=== PATIENT | female | born 1955 | race Caucasian/White ===

== ENCOUNTER 2019-04-19 16:38 | Emergency (ER) | payer MEDICARE, MEDICAID ==
[~2019-04-19] VITALS: Ht 170.2 cm; Wt 78.8 kg
[2019-04-19 17:21] LABS: BASOPHILS # (AUTO) 0.1 X10'3 (0-0.2); BASOPHILS % (AUTO) 1.1 % (0-1); EOSINOPHILS # (AUTO) 0.1 X10'3 (0-0.9); EOSINOPHILS % (AUTO) 1.5 % (0-6); HEMOGLOBIN 13.8 g/dl (12.0-16.0); LYMPHOCYTES # (AUTO) 2.1 X10'3 (1.1-4.8); LYMPHOCYTES % (AUTO) 29.5 % (21-51); MEAN CORPUSCULAR HEMOGLOBIN 31.1 PG (27.0-31.0); MEAN CORPUSCULAR HGB CONC 33.7 g/dL (33.0-36.5); MEAN CORPUSCULAR VOLUME 92.5 FL (78-98); MEAN PLATELET VOLUME 7.3 FL (7.4-10.4); MONOCYTES # (AUTO) 0.4 X10'3 (0-0.9); MONOCYTES % (AUTO) 5.5 % (2-12); NEUTROPHILS # (AUTO) 4.5 X10'3 (1.8-7.7); NEUTROPHILS % (AUTO) 62.4 % (42-75); PLATELET COUNT 334 X10'3 (140-440); RED BLOOD COUNT 4.44 X10'6 (4.20-5.60); RED CELL DISTRIBUTION WIDTH 12.6 % (11.5-14.5); WHITE BLOOD COUNT 7.2 X10'3 (4.5-11.0)
[2019-04-19 17:24] LABS: ALANINE AMINOTRANSFERASE 21 U/L (12-78); ALBUMIN 3.8 G/DL (3.4-5.0); ALBUMIN/GLOBULIN RATIO 1.2 (1.1-1.5); ALKALINE PHOSPHATASE 101 IU/L (46-116); ANION GAP 7 (8-16); ASPARTATE AMINO TRANSFERASE 20 U/L (10-37); BILIRUBIN,TOTAL 0.3 MG/DL (0.1-1.0); BLOOD UREA NITROGEN 14 MG/DL (7-18); BUN/CREATININE RATIO 17.7 (6.6-38.0); CALCIUM 9.6 MG/DL (8.5-10.1); CHLORIDE 98 MMOL/L (99-107); CREATININE 0.79 MG/DL (0.40-0.90); GLUCOSE 100 MG/DL (70-104); POTASSIUM 3.9 MMOL/L (3.5-5.1); SODIUM 135 MMOL/L (135-145); TOTAL PROTEIN 7.1 G/DL (6.4-8.2); eGFR 73 ML/MIN
[2019-04-19 19:52] VITALS: BP 133/91
== END 2019-04-19 19:53 | disposition home or self-care (01) ==
LOC: ER 16:40
DX: S00.83XA Contusion of other part of head, initial encounter (principal); S00.81XA Abrasion of other part of head, initial encounter; I10 Essential (primary) hypertension; F32.9 Major depressive disorder, single episode, unspecified; M54.2 Cervicalgia; R42 Dizziness and giddiness; W01.198A Fall on same level from slipping, tripping and stumbling with subsequent striking against other object, initial encounter; Y93.89 Activity, other specified; Y92.89 Other specified places as the place of occurrence of the external cause; Y99.8 Other external cause status
CPT/HCPCS: 36415; 70450; 70486; 72125; 80053; 85025; 93005; 99284

== ENCOUNTER 2025-03-28 05:33 | Observation (INO) | payer MEDICARE, MEDICAID ==
[2025-03-20 10:40] LABS: MEAN PLATELET VOLUME 6.9 FL (7.4-10.4); PRE OP HEMATOCRIT 35.4 % (35.0-45.0); PRE OP HEMOGLOBIN 11.4 g/dL (12.0-16.0); PRE OP PLATELET COUNT 475 X10'3 (140-440); PRE OP WHITE BLOOD COUNT 7.3 10'3 (4.8-10.8); RED CELL DISTRIBUTION WIDTH 20.1 % (11.5-14.5)
[2025-03-20 10:55] LABS: CREATININE 0.66 MG/DL (0.40-0.90); PRE OP ALT 14 U/L (30-65); PRE OP ANION GAP 4 (8-16); PRE OP AST 16 U/L (10-37); PRE OP BILIRUB, TOTAL 0.5 MG/DL (0.0-1.0); PRE OP GLUCOSE 95 MG/DL (70-104); PRE OP POTASSIUM 4.0 MMOL/L (3.4-5.1); PRE OP SODIUM 136 MMOL/L (135-145); TOTAL CARBON DIOXIDE 33.1 MMOL/L (24-32); eGFR 88 ML/MIN
[2025-03-20 10:59] LABS: PLATELET ESTIMATE INCREASED
[~2025-03-28] VITALS: Ht 162.6 cm; Wt 76.2 kg
[2025-03-28] VITALS (19 sets, daily range): BP systolic 109–156; BP diastolic 63–109; PULSE 88–102; RESP 11–16; TEMP 97.3–98.9; O2SAT 93–100
[2025-03-28] MEDS: ceFAZolin 2gm/dext,iso 50mL 50 ML IV ONE (05:30)
[~2025-03-28 05:33] MED LIST: ATOR20TA PO; DESV100T3 PO; HYDR25TA5 PO; LAMO150T6 PO; LOSA50TA64 PO; [UNRECOGNIZED DRUG - CODE] SQ
[2025-03-28] MEDS: ringers solution, lacted 1,000 ML IV SCH ×2 (06:03→08:10)
[2025-03-28] MEDS: vancomycin/NS 1 GM ADD-VANTAGE 250 ML IV ONE (06:04)
[2025-03-28] MEDS ORDERED: fentaNYL/PF 50MCG/1 ML 2ML syringe ONE ×2 (07:10→08:22)
[2025-03-28] MEDS ORDERED: ROPIVAcaine 0.5% (5mg/ml) 30ml vial ONE (07:10)
[2025-03-28] MEDS ORDERED: acetaminophen 1,000mg/100ml IV 100 ML IV ONE (07:10)
[2025-03-28] MEDS ORDERED: midazolam 1 mg/ML 2ml injection ONE (07:10)
[2025-03-28] MEDS ORDERED: dexamethasone sod phosphate 4mg/ml inj. ONE (07:11)
[2025-03-28] MEDS ORDERED: propofol inj 20 ML IV ONE (07:11)
[2025-03-28] MEDS ORDERED: LIDOcaine 1%/PF 5ML 10 MG/ML VIAL ONE (07:11)
[2025-03-28] MEDS ORDERED: ondansetron/PF 4mg/2ml inj IV PRN (07:15)
[2025-03-28] MEDS ORDERED: bisacodyl 10mg suppository rectal RC PRN (07:15)
[2025-03-28] MEDS ORDERED: magnesium hydroxide 30ml (MOM) UD suspension PO PRN (07:15)
[2025-03-28] MEDS ORDERED: PCA WASTE DOCUMENTATION 1 MG ML MC SCH (07:15)
[2025-03-28] MEDS: TIRZEPATIDE 7.5 MG SQ SCH (07:25)
[2025-03-28] MEDS: DESVENLAFAXINE SUCCINATE PO SCH (08:00)
[2025-03-28] MEDS ORDERED: hydrALAZINE 20mg/ml inj. IV PRN (08:10)
[2025-03-28] MEDS ORDERED: morphine 4 MG/ML inj SYRINge IV PRN (08:10)
[2025-03-28] MEDS ORDERED: labetalol 20mg/4ml (5mg/ml) syringe IV PRN (08:10)
[2025-03-28] MEDS ORDERED: ROPIVAcaine 0.2% (10 MG/5 ML) BOLUS INJECTION INTERSCALE PRN (08:10)
[2025-03-28] MEDS ORDERED: fentaNYL/PF 50MCG/1 ML 2ML syringe IV PRN ×2 (08:10)
--- NOTE | 2025-03-28 08:16 | ANESTHESIA RECORDS ---
Nerve Block Providers to CC CC: THOMAS GONZALEZ MD ~ Diagnosis: Nerve Block requested by: THOMAS GONZALEZ MD Neuraxial/Peripheral Nerve Block requested for Post-operative analgesia by Physician above DIAGNOSIS: Post-operative pain. (Body Area) Shoulder: [__left ] Arm: [ ] Hand: [ ] Hip: [ ] Knee: [ ] Ankle: [ ] Foot: [ ] Leg: [ ] Abdomen: [ ] Other: [ ] Post-operative pain expected to be/is inadequately managed by oral or IV medicines. Regional anesthetic expected to facilitate rehabilitation and/or discharge from facility. Other:[ _] Procedure Performed: Interscalene: Left Time out Done?: Yes Time of Time out: 07:15 Procedure Details: PROCEDURE DETAILS: Risks, benefits and alternatives explained Informed consent obtained, and patient wishes to proceed Conscious sedation with indicated monitors Patient positioned, pertinent anatomy defined, sterile technique used Needle used: [ ] 3 1/8 inch Stimuplex Ultra 22ga [ ] 4 inch Stimuplex Ultra 20ga [ ] 6 inch Stimuplex Ultra 20ga [ ] 6 inch, Quikbloc over the needle catheter set 20ga [x ] 4 inch Quikbloc over the needle catheter set 20ga [ ]Other: [ ] Loss of twitch @ [_0.4 ]mA [ ] Single Injection [ ] Catheter Ultrasound Guidance Used: [x ] Yes [ ] No Attempts:[____1 ] Medicines injected: [ ]Clonidine Amt:[ ] [ x ]Dexamethasone Amt:[_2mg ] [ x ]Ropivacaine Amt:[_0.5% 30 c.c ] [ ]Bupivacaine Amt:[ ] [ ]Lidocaine Amt:[ ] [ ]Exparel 1.33%:[ ] [ ]Epinephrine Amt[ ] [ ]Other: [ ] Intermittent aspiration during local anesthetic administration No symptoms of intraneural or intravenous injection Patient tolerated procedure well Comments Left neck examined with Ultrasound and ,neck vessels,Scalene muscles,inter scalene nerve bundle are identifiied. Catheter over stimulating needle is near the bundle and upon stimulation Biceps contractions noted. Local mix is injected,after negative aspirations. Spread is noted. Ultrasound iag eof catheter in pace documented. On q Pump ordered for postop infusion. ELVIA KAUR MD Mar 28, 2025 08:16
--- NOTE | 2025-03-28 09:24 | OPERATIVE REPORT ---
Operative Report Operative Report OPERATIVE REPORT [facility] [address] [place] [address] Date of service: March 28, 2025 PREOPERATIVE DIAGNOSIS [id number] Arthritis of left shoulder [id number] Biceps tendonitis on left POSTOPERATIVE DIAGNOSIS [id number] Arthritis of left shoulder [id number] Biceps tendonitis on left Operation Performed 54045 Total Shoulder Arthroplasty with these modifiers: 22, [place] [id number] Tenodesis, Long Tendon, Biceps with these modifiers: LT, 22 Procedure: Left total shoulder arthroplasty, reverse prosthesis. Biceps tenodesis, left shoulder Surgeon: Dr. Ricky Vance Developmental Mathematics Professor: Rachele Palacios PA-C Anesthesiologist: Dr. Puentes Anesthesia: Gen. 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 Physical therapy has been provided, along with a home exercise program. This therapeutic intervention did not provide any substantial relief of symptoms or improvement in function. Despite these treatments, this patient has continued difficulties with pain and limited function. They are unable to use the arm effectively, do any significant activities, sleep comfortably, or raise the arm overhead. This condition is significantly impairing the ability to even accomplish daily home activities. Total shoulder replacement is the next reasonable step in terms of treatment. Indications for medical assistant dermatology surgeon: A second set of skilled hands with specific orthopedic knowledge of the surgical procedure and orthopedic surgical techniques was necessary to accomplish this operation successfully, and with the least amount of morbidity for the patient. This facilitated operative exposure, manipulation and handling of tissues, placement of any implants, and accomplishment of wound closure. Findings: There was severe glenohumeral arthritis with flattening of the humeral head, glenoid erosion, and marginal osteophytes. In addition, there was significant synovitis of the biceps tendon, with extensive damage. Glenoid deformity is as follows: 29 of retroversion, 14 superior inclination as measured by the [employer] Preview planning software. The rotator cuff has some attenuation but was intact but the deformity was deemed sufficient to not allow a standard total shoulder arthroplasty. Therefore a reverse total shoulder replacement was performed. Alignment planning and execution was carried out with the [employer] software and hockey-stick guides. Estimated Blood Loss: 150 mL Complications: None Implants: A Shoulder 8D World reverse total shoulder arthroplasty system was utilized. A 24 mm, 15 degree angled, 10mm post glenoid base plate was used with appropriate length screws. All screws were locked except for the central compression screw. A 33 mm, 6 mm lateralized glenosphere was utilized. A size 8 mm I-70 humeral implant was utilized with a 6 mm offset reverse humeral tray, and a 0 mm polyethylene insert. Procedure: The risks, benefits, expected results, and possible complications of the planned procedure had been explained to the patient and informed consent obtained. The patient was taken to the operating room where a general anesthetic and scalene block was administered. The left arm and shoulder were prepped and draped in the usual sterile fashion with the patient in the semi-sitting position in the beachchair on the operating table. A timeout was taken prior to surgery confirming patient identification, operative side operative site, planned procedure, administration of pre-operative antibiotics, site marking, recognition of allergies, and confirming presence of all necessary implants and instruments. A standard deltopectoral approach was performed. The subscapularis was identified, incised along its distal insertion and reflected off the lesser tuberosity. It was tagged for later repair. Next, the anterior capsule was dissected off the subscapularis and labrum resected. The axillary nerve was identified, and its location noted so that it could be protected throughout the case. The cuff was inspected and found to have some mild attenuation but it was basically intact. No deformity of the glenoid however was quite and was deemed to preclude implantation of the standard total shoulder arthroplasty due to the extreme retroversion and inclination We therefore made the decision to proceed with a reverse prosthesis. The biceps was explored. There was significant synovitis hypertrophic enlargement and degeneration of the intra-articular portion. A biceps tenodesis was carried out in situ utilizing three #0 Ethibond sutures in the intertubercular groove, attaching the biceps quite nicely. A knife was then utilized to resect the biceps tendon from the glenohumeral joint. The humeral cutting guide was then placed and an appropriate cut made at approximately 30 of retroversion at the proper level. I then went inferiorly and removed capsular scar and inferior capsular adhesions, carefully protecting the axillary nerve, and proceeded posteriorly also removing posterior labrum and a capsular tightness. I spent a fair bit of time dissecting inferiorly and also posteriorly as well as anteriorly along the labrum to remove old capsular scar and thickened tissue and gain mobilization of the proximal humerus so that we could obtain proper exposure. We slowly worked at exposure until I had appropriate exposure of the glenoid and humerus, protecting the neurovascular structures throughout. The central drill was placed followed by placement of a humeral head protector A humeral cut protector was then placed. Attention was then directed to the glenoid. Measurements of glenoid size and version were done preoperatively on the Preview planning system. They were confirmed with use of the hockey-stick guides and direct palpation of the deepest portion of the vault with the guidepin.. The central drill pin was placed, and reaming of the face the glenoid carried out at proper version according to preoperative planning. Following this the appropriately angled reamer was utilized to gently reamed the face of the glenoid. Following this the central drill was utilized to drill the hole for the peg. The glenoid base plate was brought up onto the field and tamped into position in proper rotation, and then secured with the central screw, and peripheral locking screws. I was able to obtain good solid fixation of the baseplate with no rockering or other issues. The Glenosphere was then placed into position. It was tamped into the Mauricio taper with an excellent, secure fit. Reaming of the proximal humerus was then carried out for the I-95 stem. Trial stem and trial humeral tray was placed, followed by a trial polyethylene positioned into the proximal humerus, and a trial reduction carried out. This determined the final body thickness and polyethylene height. The trial was then removed. Small drill holes placed in the lesser tuberosity through which #2 FiberWire sutures were passed and looped around the stem for subscapularis fixation. Once this was accomplished a definitive humeral tray/stem assembly along with the polyethylene was assembled on the back table and then positioned in the proximal humerus. The shoulder was reduced, and we had good range of motion and excellent stability. The wound was irrigated thoroughly with normal saline and then the subscapularis was repaired back to the lesser tuberosity with a combination of #2 FiberWire sutures and #1 Ethibond. Anesthetic injection was performed in the deep and superficial soft tissues for postoperative pain control. This completed the total shoulder arthroplasty portion of the procedure. The entire wound was irrigated thoroughly with normal saline again and then closed in layers with #0 Strata-fix suture for deep tissue,#0 Strata-fix suture for subcutaneous tissue, and 4-0 Strata-fix for skin. Dermabond and sterile dressings were applied, and the patient was returned to the recovery room in satisfactory condition. Addendum: This total shoulder arthroplasty was a reverse prosthesis arthroplasty a significantly complex operation that requires specialized training and is substantially more difficult to accomplish successfully than a total shoulder arthroplasty. In addition, postoperative care is more complex, with a higher risk of complication. I estimate RVUs involved for both the operative procedure, and the postoperative care are approximately 1.5 times that of a normal total shoulder arthroplasty. Additionally, the biceps tenodesis is performed outside shoulder joint in order to obtain a healthy biceps tendon to soft tissue and bone repair to the proximal humerus, and should not be considered to be an operation performed in the same joint as the primary surgery. It should therefore be separately coded and billed. Electronically Signed by: Ricky Vance MD Doctor, Orthopedic Surgery Signed on: 03/28/2025 09:23 AM RICKY VANCE MD Mar 28, 2025 09:23
[2025-03-28] MEDS: ROPIVAcaine 0.2%/PF PUMP/bolus 545 ML INTERSCALE SCH (09:34)
[2025-03-28] MEDS: ondansetron/PF 4mg/2ml inj IV PRN (09:45)
[2025-03-28] MEDS: ceFAZolin/D5W- 1GM premix 50 ML IV SCH (16:29)
[2025-03-28] MEDS: oxyCODONE IR 5mg (immed. release) tablet PO PRN (17:10)
[2025-03-28] MEDS: vancomycin/NS 1 GM ADD-VANTAGE 250 ML IV SCH (20:25)
[2025-03-29 02:00] VITALS: BP 138/75; PULSE 84; RESP 14; TEMP 97.8; O2SAT 96
[2025-03-29 05:53] LABS: MEAN PLATELET VOLUME 7.2 FL (7.4-10.4); RED CELL DISTRIBUTION WIDTH 20.3 % (11.5-14.5)
[2025-03-29 06:00] VITALS: BP 124/74; PULSE 85; RESP 13; TEMP 97; O2SAT 96
[2025-03-29 06:01] LABS: TOTAL CARBON DIOXIDE 27.3 MMOL/L (24-32)
--- NOTE | 2025-03-29 07:21 | PROGRESS NOTE ---
Progress Note Ortho Ortho Post Op Day #: 1 Follow Up Progress Note Patient was admitted on the date of surgery. She had an uneventful overnight stay. Overall she is doing very well. She has worked with physical therapy and had no issues. She does states she would like 1 additional overnight stay. She does not feel she has adequate help to be discharged home until tomorrow ROS ROS No new complaints Exam Exam: Alert and Oreinted x4, Vital signs are stable, Dressing clean and dry, Wound clean and dry, Distal neurovasc intact Problem/Assessment/Plan Assessment\Plan: Doing Well, Cont. Physicial Therapy Results/Orders Result Diagram: 03/29/25 0539 03/29/25 0539 ABE HAWK [facility] Mar 29, 2025 07:20
[2025-03-29 10:00] VITALS: BP 113/67; PULSE 91; RESP 14; TEMP 97.1; O2SAT 92
[2025-03-29 18:00] VITALS: BP 102/58; PULSE 87; RESP 18; TEMP 98.3; O2SAT 98
[2025-03-29 22:00] VITALS: BP 122/79; PULSE 93; RESP 19; TEMP 97.4; O2SAT 96
[2025-03-30 06:00] VITALS: BP 105/60; PULSE 82; RESP 16; TEMP 98; O2SAT 94
[2025-03-30 06:43] LABS: MEAN PLATELET VOLUME 7.5 FL (7.4-10.4); RED CELL DISTRIBUTION WIDTH 20.1 % (11.5-14.5)
--- NOTE | 2025-03-30 06:56 | DISCHARGE SUMMARY ---
Discharge Summary Ortho CC ~ Discharge Summary Discharge Date: Mar 30, 2025 *Problems/Diagnosis: (1) S/p reverse total shoulder arthroplasty Admission Diagnosis: Osteoarthritis Discharge Diagnosis\Comment: see above Operations\Procedures see above Consultants: none Complications: none Condition on DC: Stable Discharge Summary: Patient was admitted on date of surgery. Surgery went without complication. She had an uneventful hospital course. Patient has cleared physical therapy and is safe to be discharged home. Total Time Spent on D/C: Up to 30 Minutes Medications Home Meds: Home Medications Active Reported Zepbound (Tirzepatide) 7.5 Mg/0.5 Ml Vial 7.5 Mg SQ Q7D Lipitor* (Atorvastatin Calcium) 20 Mg Tablet 1 Tab PO DAILY 30 Days Hydrochlorothiazide 25 Mg Tab 1 Tab PO DAILY 30 Days Losartan Potassium 50 Mg Tablet 50 Mg PO DAILY Lamotrigine 150 Mg Tablet 1 Tab PO BID 30 Days Pristiq ER (Desvenlafaxine Succinate) 100 Mg Tab.er.24h 1 Tab PO DAILY 30 Days Supervising Physician Supervising Physician: Dr. Ricky Vance Problem Qualifiers (1) S/p reverse total shoulder arthroplasty: Qualified Codes: Z96.612 - Presence of left artificial shoulder joint ABE HAWK Mar 30, 2025 06:56
[2025-03-30 10:00] VITALS: BP 109/67; PULSE 100; RESP 16; TEMP 97; O2SAT 96
== END 2025-03-30 12:00 | disposition home or self-care (01) ==
LOC: PAS 05:33 → PAS IN 07:21 → ORTHO 4S 10:45
PROVIDERS: ADMIT Orthopaedic Surgery; ATTEND Orthopaedic Surgery
DX: M19.012 Primary osteoarthritis, left shoulder (principal); M75.22 Bicipital tendinitis, left shoulder; M75.102 Unspecified rotator cuff tear or rupture of left shoulder, not specified as traumatic; M25.512 Pain in left shoulder; M75.42 Impingement syndrome of left shoulder; A01.00 Typhoid fever, unspecified; I10 Essential (primary) hypertension; E78.5 Hyperlipidemia, unspecified; F41.9 Anxiety disorder, unspecified; F32.9 Major depressive disorder, single episode, unspecified; Z79.899 Other long term (current) drug therapy; Z98.890 Other specified postprocedural states
CPT/HCPCS: 23430; 23472; 80051; 80053; 82948; 85008; 96365; 96366; 96367; 97161; A4565; A4615; A4618; A7000; C1713; C1776; G0378; J2795; J3490; J7120; 36415; 85025; 87081; 96376; 97110; 97535; J0131; J0690; J1100; J2250; J2405; J2704; J3010; J3373; J7030